=== PATIENT | female | born 1945 | race Caucasian/White ===

== ENCOUNTER 2021-01-02 08:47 | Emergency (ER) | payer MEDICARE, OTHER, SELFPAY ==
[2021-01-02 08:48] VITALS: BP 156/138; PULSE 80; RESP 22; TEMP 36.6; O2SAT 97; BMI 24.0
--- NOTE | 2021-01-02 09:14 | CT_ITS ---
STUDY: CT ABDOMEN AND PELVIS WITH CONTRAST REASON FOR EXAM: Female, 76 years old. Left lower quadrant abdominal pain -- IV PO Contrast RADIATION DOSAGE (If Supplied By Facility): CTDIvol = ( 11.15 ) mGy, DLP = ( 520.75 ) mGycm TECHNIQUE: Transaxial images were obtained from the dome of the diaphragm to the symphysis pubis with oral contrast. Oral and amp; IV Gastrografin and amp; 100mL Isovue-300 was administered. Sagittal and coronal images were reconstructed. Individualized dose optimization techniques were used for this CT. COMPARISON: None. FINDINGS: Minimal degree of right basilar atelectasis. The visualized portions of the heart are within normal limits. There is a 1.1 cm x 1.1 cm cyst in the left lobe of the liver. Normal gallbladder and extrahepatic biliary system. Normal spleen. Normal pancreas. There is a small, circumscribed, smooth, low attenuation right adrenal mass, consistent with an adrenal adenoma. This measures 2 cm x 2.6 cm. Normal left adrenal gland. Normal right kidney. Mild degree of left hydronephrosis and left hydroureter due to a 2.7 mm calculus at the left ureterovesical junction. There is a small hiatal hernia. Normal small intestine. Normal colon. The appendix is visualized and appears normal. Normal abdominal aorta. Normal inferior vena cava. Normal retroperitoneum. Normal urinary bladder. Enlarged calcified fibroid uterus. Right inguinal hernia containing nondilated portion of the cecum. There are degenerative changes of the visualized lumbar spine. CT/Abdomen/Pelvis WITH Contrast IMPRESSION: 2.7 mm calculus at the left ureterovesical junction causing moderate left hydronephrosis and left hydroureter. Findings suggestive of a 2 cm x 2.6 cm adenoma in the right adrenal. Small cyst in the left lobe of liver. Electronically Signed: Kash Diamond MD at 11:58 EDT , Service support ,
--- NOTE | 2021-01-02 09:16 | ED.VIS.GI ---
HPI HPI - GI History of Present Illness Chief Complaint: Abd Pain Informant: patient Abdominal Pain/Flank Pain Onset: Yesterday Context: Gradual Onset Timing: Waxes and wanes Quality: Sharp and - (Throbbing) Location: LLQ Worsened by: Nothing Relieved by: Nothing Nausea/Vomiting/Emesis GI Symptom: Positive for Nausea; Negative for Vomiting Diarrhea/Melena/Hematochezia GI Symptom: Negative for Diarrhea, Melena and Hematochezia Associated Symptoms Associated Symptoms: Positive for Urgency; Negative for Dysuria, Frequency and Hematuria Narrative Narrative: Patient presents with left lower abdominal pain that began yesterday evening. Patient states it came on gradually. Patient states it began diffusely but is now localized to the left lower quadrant. Patient describes her pain is sharp and throbbing. Patient states it waxes and wanes. Patient states it radiates into her back. Patient states is otherwise localized to the left lower quadrant. Patient states nothing makes it worse and nothing makes it better. Patient admits to some urinary urgency but denies any dysuria or hematuria. Patient admits to nausea but denies any vomiting. Patient denies any diarrhea, melena, or hematochezia. [facility] Medical History HLD (hyperlipidemia) Home Medications atorvastatin 10 mg PO DAILY 01/02/21 [History Last Taken Unknown] oxycodone-acetaminophen 1 tab PO Q6H PRN PRN 3 Days #12 tablet 01/02/21 [Rx Last Taken Unknown] Allergy/AdvReac Type Severity Reaction Status Date / Time No Known Allergies Allergy Verified 01/02/21 08:52 Surgical History no surgical history no surgical history Social History Smoking Status: Never smoker ROS ROS ED Constitutional Constitutional ED: Reports chills and subjective; Denies fever(s) Eyes Eyes: Denies blurry vision or change in vision ENT ENT ED: Denies rhinorrhea or sore throat Cardiovascular Cardiovascular: Denies chest pain or palpitations Respiratory/Chest Respiratory/Chest: Denies cough or dyspnea Gastrointestinal Gastrointestinal: Reports abdominal pain and nausea; Denies diarrhea, melena or vomiting Genitourinary Genitourinary ED: Denies dysuria or hematuria Musculoskeletal Musculoskeletal: Reports back pain; Denies neck pain Integumentary Denies abscess or rash Neurologic Neurologic: Denies headache(s) or weakness Allergic/Immunologic Allergic/Immunologic ED: Denies mouth swelling or urticaria EXAM Physical Exam Const Vital Signs: 01/02/21 08:48 01/02/21 11:00 Temperature 97.8 F Temperature Source Oral Pulse Rate 80 81 Respiratory Rate 22 H 18 Blood Pressure 156/138 H 146/83 H Blood Pressure Mean 144 104 Pulse Ox 97 97 Oxygen Delivery Method Room Air Room Air Positive well nourished and well developed General Appearance ED: well developed HEENT Reports moist mucous membranes Neck supple and no JVD Resp normal respiratory effort and clear to auscultation bilaterally Cardio regular rate, regular rhythm and no murmurs GI normal to inspection, nondistended, normoactive bowel sounds Palpation: soft and tender LLQ; Negative for guarding or rebound tenderness present Extremity normal to inspection General Extremety ED: Negative for edema or tenderness General Extremity: Negative for edema Neuro oriented x3, CN's II-XII intact bilaterally and no sensory deficits noted Sensorium / Orientation: alert Motor Exam: strength 5/5 throughout Psych mental status grossly normal Skin no rashes or lesions noted MDM MDM MDM Narrative Medical decision making narrative: Patient was given IV fluids, morphine, and Zofran. CBC and comprehensive metabolic profile were obtained were within normal limits. Urinalysis does not show any evidence of urinary tract infection. Patient was given a repeat dose of morphine. CT scan of the abdomen pelvis was obtained. There is a 2.7 mm calculus at the left ureterovesicular junction. There is moderate hydronephrosis and hydroureter. There is also a 2 cm x 2.6 cm adenoma of the right adrenal gland. This was interpreted by the radiologist and reviewed by myself. Patient was advised of her findings. Patient was instructed to drink plenty of fluids. Patient was given a prescription for Percocet. Patient was instructed to follow-up with her primary care physician in 5 to 7 days. Patient was also given a referral for urology. Patient understood and was agreeable with the plan. All questions were answered. Lab Data Attestation: I reviewed the patient's lab results. Labs: Laboratory Results - last 24 hr 01/02/21 01/02/21 01/02/21 08:52 08:52 09:45 WBC 10.2 RBC 4.07 L Hgb 12.2 Hct 37.3 MCV 91.6 MCH 30.0 MCHC 32.7 RDW Std Deviation 42.0 RDW Coeff of Bel 12.6 Plt Count 296 MPV 9.7 Immature Gran % (Auto) 0.300 Neut % (Auto) 78.9 H Lymph % (Auto) 14.6 L [place] % (Auto) 5.8 Eos % (Auto) 0.1 Baso % (Auto) 0.3 Absolute Neuts (auto) 8.0 H Absolute Lymphs (auto) 1.49 Nucleated RBC % 0 Sodium 138 Potassium 3.8 Chloride 104 Carbon Dioxide 23.0 Anion Gap 11 BUN 20 H Creatinine 0.71 Estim Creat Clear Calc 40.21 Est GFR (MDRD) Af Amer 103 Est GFR (MDRD) Non-Af 85 BUN/Creatinine Ratio 28.2 H Glucose 171 H Calcium 8.8 Total Bilirubin 0.30 AST 21 ALT 23 Alkaline Phosphatase 76 Total Protein 7.0 Albumin 3.4 Globulin 3.6 Albumin/Globulin Ratio 0.9 Urine Color Yellow Urine Clarity Sl. Cloudy Urine pH 7.0 Ur Specific [place] 1.010 Urine Protein Negative Urine Glucose (UA) 100 H Urine Ketones 50 H Urine Occult Blood 25 H Urine Nitrite Negative Urine Bilirubin Negative Urine Urobilinogen Normal Ur Leukocyte Esterase Negative Urine RBC 0-5 SEEN Urine WBC 0 SEEN Ur Squamous Epith Cells 0-5 SEEN Urine Bacteria 2+ Urine Mucus RARE Radiography Diagnostic Testing: Clinical Impression(s) from Imaging Studies Abdomen/Pelvis CT 01/02/21 09:14 IMPRESSION: 2.7 mm calculus at the left ureterovesical junction causing moderate left hydronephrosis and left hydroureter. Findings suggestive of a 2 cm x 2.6 cm adenoma in the right adrenal. Small cyst in the left lobe of liver. Electronically Signed: Kash Diamond MD at 11:58 EDT , Service support , Discharge Plan Triage Chief Complaint: Abd Pain ED Provider: Gera Montoya Dx/Rx/DC Orders Clinical Impression: Calculus of distal left ureter Instructions: ED Kidney Stone w/ Colic Prescriptions: New oxycodone-acetaminophen [oxycodone-acetaminophen] 1 TABLET tablet 1 tab PO Q6H PRN PRN (Reason: Pain) 3 Days Qty: 12 RF: 0 No Action atorvastatin 10 mg tablet 10 mg PO DAILY RF: 0 Primary Care Provider: Epifanio Powers Referrals: Rocio Ferreira MD [STAFF PHYSICIAN] - 5-7 Days Epifanio Powers MD [Primary Care Provider] - 5-7 Days Disposition Disposition: Home, Self Care
[2021-01-02] MEDS: Ondansetron 4 MG/2 ML Vial IV (09:21)
[2021-01-02] MEDS: Morphine 4 MG/ML Syringe IV ×3 (09:21→12:44)
[2021-01-02 09:22] LABS: Absolute Lymphocyte Count 1.49 X10^3/uL (0.83-4.51); Basophil# 0.03 X10^3/uL; Basophil% 0.3 % (0-1); Eosinophil# 0.01 X10^3/uL; Eosinophils% 0.1 % (0-5); Hematocrit 37.3 % (37-47); Hemoglobin 12.2 g/dL (12.0-15.0); Lymphocyte # 1.49 X10^3/ul (0.83-4.51); Lymphocyte % 14.6 % (19-41); Mean Corp Hgb Conc 32.7 g/dL (32-36); Mean Corpuscular Volume 91.6 fL (81-99); Mean Platelet Vol. 9.7 fl (6.2-12.0); Monocyte# 0.59 X10^3/uL; Monocyte% 5.8 % (0-10); NRBC Flagged by Analyzer 0 % (0-5); Neutrophil # 8.04 X10^3/uL (2.7-7.7); Neutrophil % 78.9 % (47-70); Platelet Count 296 K/mm3 (150-450); RBC Distribution Width CV 12.6 % (11.6-14.6); Red Blood Count 4.07 M/mm3 (4.2-5.4); White Blood Count 10.2 K/mm3 (4.4-11.0)
[2021-01-02] MEDS: 0.9% Normal Saline 1,000 ML 1000 ML IV (09:22)
[2021-01-02 09:33] LABS: ALB/GLOB Ratio 0.9 RATIO (0.9-2.4); AST(SGOT) 21 U/L (15-37); Alanine Aminotransfer ALT/SGPT 23 U/L (13-56); Albumin, Serum 3.4 g/dL (3.2-5.0); Alkaline Phosphatase 76 U/L (45-117); Anion Gap 11 (5-15); BUN 20 mg/dL (7-18); BUN/Creat Ratio 28.2 RATIO (10-20); Calcium,Total 8.8 mg/dL (8.5-10.1); Chloride 104 mmol/L (98-107); Creatinine, Serum 0.71 mg/dL (0.55-1.02); EST Glomerular Filtration Rate 85 mL/min (>60); Est Glom Filt Rate - Afr Amer 103 mL/min (>60); Estimated Creatinine Clearance 40.21 ml/min; Globulin 3.6 g/dL (2.2-4.2); Glucose 171 mg/dL (74-106); Potassium 3.8 mmol/L (3.5-5.1); Sodium Level 138 mmol/L (136-145)
[2021-01-02 09:53] LABS: White Blood Cells 0 SEEN /hpf (0-5)
[2021-01-02 09:57] LABS: Color, Urine Yellow (Yellow); Glucose, Dipstick 100 mg/dl (Normal); Ketone-Dipstick 50 mg/dl (Negative); Leukocyte Esterase-Dipstick Negative /ul (Negative); Nitrite-Dipstick Negative (Negative); Occult Blood-Urine 25 /ul (Negative); Protein-Dipstick Negative (Negative); Urine Bilirubin Dipstick Negative (Negative); Urine Clarity Sl. Cloudy (Clear); Urine Urobilinogen Normal (Normal)
[2021-01-02 10:03] LABS: Bacteria 2+ /hpf (None Seen); Mucous, Urine RARE /hpf (<or=2+); Red Blood Cells-Urine 0-5 SEEN /hpf (0-5); Squamous Epithelial Cells - UA 0-5 SEEN /hpf (5-10)
[2021-01-02 11:00] VITALS: BP 146/83; PULSE 81; RESP 18; O2SAT 97
[2021-01-02 13:00] VITALS: BP 163/66; PULSE 87; RESP 18; O2SAT 97
[2021-01-02] MEDS: Ondansetron ODT 4 MG Tablet PO (13:01)
[2021-01-02] MEDS: proMETHazine 25 MG/ML Syringe 6.25 MG IM (13:40)
--- NOTE | 2021-01-02 14:18 | ED.RN ---
per pt to be d/c after phenergan, pt states i'm feeling better after that medicine. pt d/c with a friend.
== END 2021-01-02 14:19 | disposition home or self-care (01) ==
PROVIDERS: Emergency Provider Emergency Medicine; PCP Family Medicine
DX: N13.2 Hydronephrosis with renal and ureteral calculous obstruction (principal); E78.5 Hyperlipidemia, unspecified; Z79.899 Other long term (current) drug therapy
CPT/HCPCS: 74177; 80053; 81001; 85025; 96361; 96372; 96374; 96375; 96376; 99285; J7030; Q9967; A4216; J2405

== ENCOUNTER → 2021-01-16 10:39 | Outpatient (CLI) | payer MEDICARE, OTHER, SELFPAY ==
--- NOTE | 2021-01-16 10:41 | US_ITS ---
STUDY: RENAL ULTRASOUND - COMPLETE REASON FOR EXAM: Female, 76 years old. KIDNEY STONES TECHNIQUE: Ultrasound evaluation of the kidneys was performed with real-time and static umaña-scale imaging. COMPARISON: None. FINDINGS: RIGHT KIDNEY: Normal location of the right kidney, which is normal in size. The right kidney measures 10.7 cm x 4.7 cm x 4.4 cm. There is a normal cortex of the right kidney. The renal cortex measures 1.5 cm. There is no right renal mass or cyst. There are no right renal calculi. There is no right hydronephrosis. DISTAL RIGHT URETER: There is non-visualization of the distal right ureter. There is no demonstrated right ureterovesical junction calculus. There is no demonstrated right ureteral jet. LEFT KIDNEY: Normal location of the left kidney, which is normal in size. The left kidney measures 11 cm x 4.5 cm x 6.5 cm. There is a normal cortex of the left kidney. The renal cortex measures 1.3 cm. There is no left renal mass or cyst. There are no left renal calculi. There is no left hydronephrosis. DISTAL LEFT URETER: There is non-visualization of the distal left ureter. There is no demonstrated left ureterovesical junction calculus. There is a visualized left ureteral jet. BLADDER: The distended urinary bladder has a volume of 61 ml. There is a normal wall thickness of the distended urinary bladder. There is no demonstrated mass within the urinary bladder. There are no demonstrated bladder calculi. US/Kidney and Bladder IMPRESSION: Normal ultrasound of the kidneys and urinary bladder. Electronically Signed: Kash Diamond MD at 15:23 EST , Service support ,
== END ==
PROVIDERS: PCP Family Medicine; Referring Provider Urology; Visit Provider Urology
DX: N20.0 Calculus of kidney (principal)
CPT/HCPCS: 76770

== ENCOUNTER → 2022-02-18 | Outpatient (CLI) | payer MEDICARE, OTHER, SELFPAY ==
--- NOTE | 2022-02-18 09:16 | RAD_ITS ---
STUDY: X-RAY - ABDOMEN/PELVIS REASON FOR EXAM: Female, 77 years old. Flank pain TECHNIQUE: Two AP supine views of the abdomen and pelvis. COMPARISON: None. FINDINGS: Normal visualized lung bases. There is an unremarkable bowel gas pattern. There is no demonstrated free abdominal air. The visualized liver, spleen and kidneys are grossly normal in size and morphology. No calcifications overlying either renal shadow, or along the expected course of either ureter. There are calcified phleboliths in the pelvis. Normal visualized osseous structures. Popcorn-like calcification in the right hemipelvis likely represents an involuted fibroid. RAD/Abdomen Single View IMPRESSION: No suspicious findings Electronically Signed: Ludwin Kerns MD at 12:25 EST ,
== END | disposition home or self-care (01) ==
PROVIDERS: PCP Family Medicine; Referring Provider Urology; Visit Provider Urology
DX: N20.0 Calculus of kidney (principal)
CPT/HCPCS: 74018

== ENCOUNTER 2023-04-20 07:46 | Day surgery (SDC) | payer MEDICARE, OTHER, SELFPAY ==
--- NOTE | 2023-04-20 08:05 | H&P.OPEN ---
HPI - General General Date of Service: 04/20/23 [facility] Narrative VILMA BENSON, is a 78 F who presents for colonoscopy due to issues with constipation. Patient states that that has gotten better with the fiber. Patient did try the Desitin cream and that did improve the burning sensation within 24 hours. Patient denies any history of colon cancer. office visit from 03/18/23 [facility] HPI: 78-year-old female presents due to constipation and diarrhea and hemorrhoids. Patient states she had a colonoscopy last in 2013 which was negative. Patient states she has always had more constipation than diarrhea. Patient states that if she takes laxative she does get the diarrhea and she may get the diarrhea after having to patient for a while. Patient has tried some [id number] hemorrhoid cream and describes having some burning sensation in that area with wiping especially. Patient had tried increased her fiber by adding Benefiber to her coffee. Patient is unsure if she does drink enough water daily states that she tries but she is unsure of exactly how much she takes. [facility] Medical History (Updated 04/14/23 @ 13:26 by Dinora Carvalho) Anxiety High cholesterol History of echocardiogram History of edema History of stress test HLD (hyperlipidemia) Leg cramps Loss of hearing Non-smoker PONV (postoperative nausea and vomiting) Wears glasses Home Medications atorvastatin 10 mg tablet 10 mg PO DAILY 01/02/21 [History Last Taken Unknown] latanoprost 0.005 % eye drops 1 drp ophthalmic (eye) DAILY 03/18/23 [History Last Taken Unknown] Allergy/AdvReac Type Severity Reaction Status Date / Time No Known Allergies Allergy Verified 04/20/23 08:17 Surgical History (Updated 04/14/23 @ 13:26 by Dinora Carvalho) History of section (~1976) S/P blepharoplasty S/P cataract surgery (~2022) Social History (Updated 03/18/23 @ 14:06 by Senia Perdomo LPN) Smoking Status: Never smoker alcohol intake: current alcohol intake frequency: holidays/special occasions only substance use type: does not use Past Medical/Surgical History Planned Operation Planned Operative Procedure/s: CSCOPE Previous Hospitalizations/Surgeries HX Hospitalizations: No Any Problems With Anesthesia: Yes (PONV) You/Your Family Experience Fever (Hyperthermia) With Anes: No Cholinesterase deficiency: No Cardiovascular Hx Hypertension: No Respiratory Hx Sleep Apnea: No Hx Respiratory Tract Infection/Cold (presently): No Do You Snore Loudly (louder than talking or can be heard): No Do You Often Feel Tired/ Fatigued/ Sleepy Dring Daytime?: No Has Anyone Observed You Stop Breathing During Sleep?: No Result (for STOP score): Negative Smoking Status: Never smoker Neurological Does patient have nerve stimulator: No Reproduction : No Allergies No Known Allergies Allergy (Verified 04/20/23 08:17) Discharge Is Pt Admitted From a [facility], or a Skilled Nursing: No After D/C, Where Do you Plan to Go: Return Home Physical Exam Const alert, oriented x3 and no apparent distress HEENT normocephalic and head/scalp atraumatic Resp normal respiratory effort Cardio regular rate GI soft to palpation and non-tender; Negative for non-distended Palpation: Negative for guarding Extremity no clubbing, cyanosis or edema Skin no rashes or lesions noted Neuro CN's II-XII intact bilaterally Psych mental status grossly normal Assessment & Plan Assessment/Plan (1) Constipation: (2) Irritation of skin of perianal region: Surgery Risks - Colonoscopy I discussed with the patient the risks of the procedure: Yes Risks Include but are not Limited To: Risks include but are not limited to: Bleeding, perforation requiring further surgery, inability to complete colonoscopy requiring barium enema.
[2023-04-20] MEDS: Lactated Ringers 1,000 ML 15 ML IV (08:18)
[2023-04-20 08:19] VITALS: BP 135/68; PULSE 82; RESP 16; TEMP 36.4; O2SAT 99; BMI 24.5
--- NOTE | 2023-04-20 09:00 | COLBX_PTH ---
PATHOLOGY RESULTS PATIENT: VILMA BENSON LOC: EN U#:[id number] AGE/SX: 78/F ROOM: RE04/20/[address]: Dr. Alla Lundy MD : 1945 BED: DIS: 04/20/2023 SPEC #: [id number] RECD: 04/20/23 10:50 STATUS: PIA REQ #: [id number] YARI: 04/20/23 09:[address]: Alla Lundy DEPT: SURGICAL PATHOLOGY RECD BY: Fanny Duenas ENTERED: 04/20/23 11:17 SP TYPE: COLON BX OTHR DR: Dr. Epifanio Powers MD Tissues: Ascending colon Procedures: Surgery Specimen Level IV HEADER OPERATION: Colonoscopy with polyp biopsy PRE-OP DIAGNOSIS: Constipation, irritation of perianal region TISSUE SUBMITTED: Ascending colon polyp biopsy MICROSCOPIC DIAGNOSIS Ascending colon polyp, biopsy: Fragments of tubular adenoma. SJ:eddie 04/21/2023 MICROSCOPIC DESCRIPTION Slides are reviewed. GROSS DESCRIPTION Received in fixative is one container labeled with the patient's name and designated ascending colon polyp biopsy. The specimen consists of two irregular fragments of light lewis soft tissue that in aggregate measure 0.8 x 0.5 x 0.1 cm. The specimen is totally submitted in one cassette. / AM:eddie 04/20/2023 TC:1 CPT: 90174
[2023-04-20 09:25] VITALS: BP 124/64; BP 135/68; PULSE 70; RESP 16; TEMP 36.5; O2SAT 95
[2023-04-20 09:30] VITALS: BP 114/67; BP 135/68; PULSE 69; RESP 16; O2SAT 96
--- NOTE | 2023-04-20 09:32 | OP.CCLET_ITS ---
04/20/2023 Epifanio Powers Re : Colonoscopy procedure for Liliya Smithr Gio This procedure was performed on Thursday, April 20, 2023. My impressions and recommendations are as follows: Impressions : - Hemorrhoids found on perianal exam. - Non-bleeding internal hemorrhoids. - One less than 5 mm polyp in the ascending colon, removed with a cold biopsy forceps. Resected and retrieved. - The examination was otherwise normal. Recommendations : - Discharge patient to home. - Resume previous diet. - Continue present medications. - Use hydrocortisone suppository [Dose] [Route] [Frequency] [Duration] - Repeat colonoscopy in 5 years for surveillance based on pathology results. My findings are described in the full procedure note, which is enclosed. If I can be of further assistance, please feel free to contact me at Doctor phone number(s): , Work: . Sincerely, MD Alla Corona MD 04/20/2023 9:32:11 AM This report has been signed electronically.
--- NOTE | 2023-04-20 09:32 | OP.COLON_ITS ---
Patient Name: Liliya Quinonez Procedure Date: 04/20/2023 8:55 AM Date of : 1945 Age: 78 Procedure: Colonoscopy Indications: Screening for colorectal malignant neoplasm Providers: Alla Lundy MD Referring MD: Epifanio Powers Medicines: Monitored Anesthesia Care Patient Profile: This is a 78 year old female. Last Colonoscopy: 2013. Complications: No immediate complications. Procedure: Pre-Anesthesia Assessment: - Prior to the procedure, a History and Physical was performed, and patient medications and allergies were reviewed. The patient's tolerance of previous anesthesia was also reviewed. The risks and benefits of the procedure and the sedation options and risks were discussed with the patient. All questions were answered, and informed consent was obtained. Prior Anticoagulants: The patient has taken no anticoagulant or antiplatelet agents. ASA Grade Assessment: Per anesthesia. After reviewing the risks and benefits, the patient was deemed in satisfactory condition to undergo the procedure. After I obtained informed consent, the scope was passed under direct vision. Throughout the procedure, the patient's blood pressure, pulse, and oxygen saturations were monitored continuously. The Colonoscope was introduced through the anus and advanced to the cecum, identified by the appendiceal orifice, ileocecal valve and palpation. The colonoscopy was somewhat difficult due to a tortuous colon. The patient tolerated the procedure well. The quality of the bowel preparation was good. Scope In: 9:03:54 AM Scope Withdrawal Time 0 hours 6 minutes 49 seconds Scope Out: 9:21:34 AM Total Procedure Duration Time 0 hours 17 minutes 40 seconds Findings: Hemorrhoids were found on perianal exam. Non-bleeding internal hemorrhoids were found. The hemorrhoids were Grade I (internal hemorrhoids that do not prolapse). A less than 5 mm polyp was found in the ascending colon. The polyp was sessile. The polyp was removed with a cold biopsy forceps. Resection and retrieval were complete. The exam was otherwise without abnormality. Impression: - Hemorrhoids found on perianal exam. - Non-bleeding internal hemorrhoids. - One less than 5 mm polyp in the ascending colon, removed with a cold biopsy forceps. Resected and retrieved. - The examination was otherwise normal. Recommendation: - Discharge patient to home. - Resume previous diet. - Continue present medications. - Use hydrocortisone suppository [Dose] [Route] [Frequency] [Duration] - Repeat colonoscopy in 5 years for surveillance based on pathology results. Procedure Code(s): --- Professional --- 46164, PT, Colonoscopy, flexible; with biopsy, single or multiple Diagnosis Code(s): --- Professional --- Z12.11, Encounter for screening for malignant neoplasm of colon K64.0, First degree hemorrhoids D12.2, Benign neoplasm of ascending colon CPT copyright 2021 [employer]. All rights reserved. The codes documented in this report are preliminary and upon rn clinical review may be revised to meet current compliance requirements. MD Alla Corona MD 04/20/2023 9:32:11 AM This report has been signed electronically. Number of Addenda: 0 Note Initiated On: 04/20/2023 8:55 AM
[2023-04-20 09:36] VITALS: BP 135/68; BP 138/64; PULSE 66; RESP 72; O2SAT 16
[2023-04-20 09:43] VITALS: BP 134/100; BP 135/68; PULSE 67; RESP 16; TEMP 36.7; O2SAT 98
[2023-04-20 09:56] VITALS: BP 135/68
== END 2023-04-20 10:37 | disposition home or self-care (01) ==
LOC: EN 07:47 → AC 07:48
PROVIDERS: PCP Family Medicine; Referring Provider Family Medicine; Visit Provider Surgery
PROC: 0DJD8ZZ Inspection of Lower Intestinal Tract, Via Natural or Artificial Opening Endoscopic (ICD-10-PCS; CPT 45378; principal; 2023-04-20 08:55)
DX: D12.2 Benign neoplasm of ascending colon (principal); K59.00 Constipation, unspecified; K64.0 First degree hemorrhoids; E78.00 Pure hypercholesterolemia, unspecified; K62.89 Other specified diseases of anus and rectum; K64.4 Residual hemorrhoidal skin tags; Z79.899 Other long term (current) drug therapy
CPT/HCPCS: 45380; 88305; J7120; J2405